=== PATIENT | male | born 2000 | race Caucasian/White ===

== ENCOUNTER 2020-10-05 15:48 | Outpatient (REF) | payer OTHER, SELFPAY | END 2020-10-05 15:49 | disposition home or self-care (01) | LOC: HO.LAB 15:48 | PROVIDERS: Visit Provider Internal Medicine | DX: Z20.828 Contact with and (suspected) exposure to other viral communicable diseases (principal) | CPT/HCPCS: C9803; U0003 ==

== ENCOUNTER 2020-12-31 09:15 | Outpatient (REF) | payer OTHER, SELFPAY | END 2020-12-31 09:16 | disposition home or self-care (01) | LOC: HO.LAB 09:15 | PROVIDERS: Visit Provider Internal Medicine | DX: Z20.822 Contact with and (suspected) exposure to COVID-19 (principal) | CPT/HCPCS: 36415; C9803; U0003; U0005 ==

== ENCOUNTER 2021-03-04 11:10 | Emergency (ER) | payer OTHER, SELFPAY ==
--- NOTE | ~2021-03-04 | XR_ITS ---
EXAMINATION: XR CHEST CLINICAL INFORMATION: Right clavicular pain. COMPARISON: Contralateral left clavicle and left shoulder radiographs 09/26/2010. TECHNIQUE: 2 views of the chest were obtained. FINDINGS: The lungs are clear. There is no pneumothorax, pleural reaction, infiltrate, or effusion. The heart is normal in size. The hilar and mediastinal contours are normal. No acute bony abnormality. XR/XR chest 2V IMPRESSION: Unremarkable examination.
[2021-03-04 12:03] VITALS: BP 137/53; PULSE 85; RESP 18; TEMP 36.4; O2SAT 98; BMI 23.7
--- NOTE | 2021-03-04 12:47 | ED.EXTPRO ---
HPI - Extremity Problem General Chief complaint: Extremity Injury, Upper Stated complaint: Shoulder Pain Time Seen by Provider: 03/04/21 12:46 Source: patient Mode of arrival: ambulatory Limitations: no limitations History of Present Illness HPI Narrative: 20 y/o male presents to the ER with right clavicular pain for the last 1 week. He denies fall or trauma but he has been going to the gym every day for the last 2 weeks. He is lifting heavier weights than he has before. He states the pain is located on his medical clavicle and it is worse with right arm movement and palpation. Pain is minimal at rest. No SOB or chest pain. No lateral shoulder pain or arm pain. MD Complaint: joint paint Onset (ago): week(s) (1) Pain Consistency: intermittent Location: right and upper extremity Severity scale (1-10): 5 Quality: aching Radiation: none Relieving factors: immobilization and rest Exacerbating factors: range of motion and palpation Associated symptoms: denies other symptoms Related Data Allergies Allergy/AdvReac Type Severity Reaction Status Date / Time No Known Allergies Allergy Verified 03/04/21 12:02 Review of Systems Review of Systems: Constitutional: No Fever, No Chills ENT/Mouth: No Swallowing Difficulty Cardiovascular: No Chest Pain, No SOB, No Orthopnea, No Edema Respiratory: No Cough, No Sputum Gastrointestinal: No Nausea, No Vomiting Musculoskeletal: + joint pain, No Myalgias Skin: No Skin Lesions Neuro: No Weakness, No Numbness PMFSH Past Medical History Attestation statement: The following information was validated with the patient. Medical History (Updated 03/04/21 @ 13:03 by ARI Walker) Patient denies medical problems Social History Social History Advance Directives: No Advance Directives Information Provided: Yes Physical Exam Vital Signs: Vital Signs: Last Vital Signs Temp 97.6 F 03/04/21 12:03 Pulse 85 03/04/21 12:03 Resp 18 03/04/21 12:03 BP 137/53 L 03/04/21 12:03 Pulse Ox 98 03/04/21 12:03 Body Mass Index 23.7 Appearance: Alert. Oriented X3. No acute distress. HEENT: normal inspection CVS: Normal heart rate and rhythm. Pulses normal. Respiratory: No respiratory distress. normal inspection. CTAB. non-tender anterior chest wall including sterum. Skin: Skin warm and dry. Normal skin color. Normal skin turgor. No rashes. Extremities: normal right arm inspection, normal ROM of right shoulder and elbow. medial clavicle with slight tenderness. no mass, deformity, skin changes. Neuro: Oriented X 3. No motor deficit. No sensory deficit. Course Course Course Narrative: 20 y/o healthy male presenting with medial clavicular pain after heavy lifting. Exam and clinical presentation are not consistent with fracture, XR is negative with clear lungs. Suspect his pain is due to muscular strain. Will treat with NSAIDS, ice and rest. patient is agreeable with plan and instructed to return to ER if pain worsens or changes. Discharge Plan Discharge Clinical Impression: Muscle strain of chest wall Qualifiers: Encounter type: initial encounter Qualified Code(s): S29.011A - Strain of muscle and tendon of front wall of thorax, initial encounter Patient Disposition: Home, Self-Care Instructions: Muscle Strain (ED) Additional Instructions: Your x-ray today was normal. Your pain is likely from overuse and strain. Recommend rest, ice and trial of anti-inflammatories like Motrin, Aleve or Advil. Follow up with your doctor if no improvement in 1 week. Stand Alone Forms: Work/School Release Interventions: ED Discharge Assessment Last Done: 03/04/21 13:29 Discharge Date/Time: 03/04/21 13:29
== END 2021-03-04 13:29 | disposition home or self-care (01) ==
PROVIDERS: Emergency Provider Emergency Medicine
DX: S29.011A Strain of muscle and tendon of front wall of thorax, initial encounter (principal); R07.81 Pleurodynia; X50.0XXA Overexertion from strenuous movement or load, initial encounter; Y93.B3 Activity, free weights; Y92.39 Other specified sports and athletic area as the place of occurrence of the external cause; Y99.9 Unspecified external cause status
CPT/HCPCS: 71046; 99283